=== PATIENT | female | born 1995 | race African-American/Black ===

== ENCOUNTER 2018-10-21 23:11 | Emergency (ER) | payer SELFPAY ==
--- NOTE | 2018-10-22 01:39 | ER Document Report ---
ED Cardiac - General Chief Complaint: Shortness Of Breath Stated Complaint: CHEST PAIN DOWN RIGHT ARM,TROUBLE BREATHING Time Seen by Provider: 10/22/18 01:19 Mode of Arrival: Ambulatory Information source: Patient, Parent TRAVEL OUTSIDE OF THE [place] IN LAST 30 DAYS: No - HPI Patient complains to provider of: Chest pain Was the onset of pain: Sudden Is the pain a: New problem Quality of pain: Mild, Achy Chest pain radiation location: Right arm Severity now: None Severity at worst: Mild Pain level currently: Denies Chest pain precipitating factors: At Rest Cardiac risk factors: None Positive cardiac history: No Associated symptoms: Shortness of breath Exacerbated by: Denies Relieved by: Nothing Similar symptoms previously: No Recently seen / treated by doctor: No - Related Data Allergies/Adverse Reactions: No Known Allergies Allergy (Unverified 10/22/18 03:21) Past Medical History - General Information source: Patient - Social History Smoking Status: Unknown if Ever Smoked Family History: Reviewed & Not Pertinent Review of Systems - Review of Systems Constitutional: No symptoms reported EENT: No symptoms reported Cardiovascular: Chest pain Respiratory: Short of breath Gastrointestinal: No symptoms reported Genitourinary: No symptoms reported Female Genitourinary: No symptoms reported Musculoskeletal: No symptoms reported Skin: No symptoms reported Hematologic/Lymphatic: No symptoms reported Neurological/Psychological: No symptoms reported -: Yes All other systems reviewed and negative Physical Exam - Vital signs Vitals: Temp Pulse Resp BP Pulse Ox 97.5 F 104 H 22 H 122/60 97 10/21/18 23:17 10/21/18 23:17 10/21/18 23:17 10/21/18 23:17 10/21/18 23:17 Interpretation: Normal - General General appearance: Appears well, Alert - HEENT Head: Normocephalic, Atraumatic Eyes: Normal Pupils: PERRL - Respiratory Respiratory status: No respiratory distress Chest status: Nontender Breath sounds: Normal Chest palpation: Normal - Cardiovascular Rhythm: Regular Heart sounds: Normal auscultation Murmur: No Notes: Right chest wall is tender to palpation. - Abdominal Inspection: Normal Distension: No distension Bowel sounds: Normal Tenderness: Nontender Organomegaly: No organomegaly - Back Back: Normal, Nontender - Extremities General upper extremity: Normal inspection, Nontender, Normal color, Normal ROM, Normal temperature General lower extremity: Normal inspection, Nontender, Normal color, Normal ROM, Normal temperature, Normal weight bearing. No: Alonzo's sign - Neurological Neuro grossly intact: Yes Cognition: Normal Orientation: AAOx4 [place]er Coma Scale Eye Opening: Spontaneous Robles Coma Scale Verbal: Oriented Robles Coma Scale Motor: Obeys Commands Robles Coma Scale Total: 15 Speech: Normal Motor strength normal: LUE, RUE, LLE, RLE Sensory: Normal - Psychological Associated symptoms: Normal affect, Normal mood - Skin Skin Temperature: Warm Skin Moisture: Dry Skin Color: Normal Course - Vital Signs Vital signs: Temp Pulse Resp BP Pulse Ox 97.5 F 104 H 19 110/67 100 10/21/18 23:17 10/21/18 23:17 10/22/18 03:01 10/22/18 03:01 10/22/18 03:39 - Laboratory Result Diagrams: 10/22/18 01:50 10/22/18 01:50 Laboratory results interpreted by me: 10/22/18 10/22/18 10/22/18 01:50 01:50 02:05 WBC 12.3 H RBC 5.80 H Hgb 11.9 L MCV 65 L MCH 20.6 L MCHC 31.4 L RDW 17.0 H Alkaline Phosphatase 136 H Urine Urobilinogen 2.0 H - Diagnostic Test Radiology reviewed: Reports reviewed - EKG Interpretation by Ne EKG shows normal: Sinus rhythm Rate: Tachycardia When compared to previous EKG there are: Previous EKG unavailable Additional EKG results interpreted by me: 10/22/18 02:32 Nonspecific T wave changes. No STEMI. Discharge - Discharge Clinical Impression: Atypical chest pain, Acute costochondritis Condition: Stable Disposition: HOME, SELF-CARE Instructions: Costochondritis ([facility]) Additional Instructions: Please follow-up with your doctor within the next 24 hours. Return to the emergency room if your condition worsens. Prescriptions: Ibuprofen [Ibu] 600 mg PO Q8H PRN #20 tablet PRN Reason:
[2018-10-22 02:15] LABS: ABSOLUTE BASOPHILS # (AUTO) 0.1 10^3/uL (0.0-0.2); ABSOLUTE EOSINOPHILS # (AUTO) 0.2 10^3/uL (0.0-0.6); ABSOLUTE LYMPHOCYTES (AUTO) 3.3 10^3/uL (0.5-4.7); ABSOLUTE MONOCYTES (AUTO) 0.8 10^3/uL (0.1-1.4); ABSOLUTE NEUT (AUTO) 7.8 10^3/uL (1.7-8.2); BASOPHILS % (AUTO) 0.6 % (0-2); EOSINOPHILS % (AUTO) 1.5 % (0-6); HEMATOCRIT 37.9 % (36.0-47.0); HEMOGLOBIN 11.9 g/dL (12.0-15.5); LYMPHOCYTES % (AUTO) 27.2 % (13-45); MEAN CORPUSCULAR HEMOGLOBIN 20.6 pg (27.0-33.4); MEAN CORPUSCULAR HGB CONC 31.4 g/dL (32.0-36.0); MEAN CORPUSCULAR VOLUME 65 fl (80-97); MONOCYTES % (AUTO) 6.6 % (3-13); PLATELET COUNT 327 10^3/uL (150-450); SEGMENTED NEUTROPHILS % (AUTO) 64.1 % (42-78); TOTAL CELLS COUNTED % (AUTO) 100 %; WHITE BLOOD COUNT 12.3 10^3/uL (4.0-10.5)
[2018-10-22 02:24] LABS: APPEARANCE,URINE SLIGHTLY-CLOUDY; BILIRUBIN,URINE NEGATIVE (NEGATIVE); COLOR,URINE YELLOW; GLUCOSE, URINE NEGATIVE (NEGATIVE); KETONES,URINE NEGATIVE (NEGATIVE); LEUKOCYTE ESTERASE,URINE NEGATIVE (NEGATIVE); NITRITE,URINE NEGATIVE (NEGATIVE); PROTEIN,URINE NEGATIVE (NEGATIVE); URINE SPECIFIC GRAVITY 1.021
[2018-10-22 02:35] LABS: ALANINE AMINOTRANSFERASE 33 U/L (9-52); ALBUMIN 4.6 g/dL (3.5-5.0); ALKALINE PHOSPHATASE 136 U/L (38-126); ANION GAP 11 (5-19); ASPARTATE AMINO TRANSFERASE 24 U/L (14-36); BILIRUBIN,DIRECT 0.3 mg/dL (0.0-0.4); BILIRUBIN,TOTAL 0.4 mg/dL (0.2-1.3); BLOOD UREA NITROGEN 12 mg/dL (7-20); CALCIUM 9.7 mg/dL (8.4-10.2); CARBON DIOXIDE 24 mmol/L (22-30); CHLORIDE 105 mmol/L (98-107); CREATINE KINASE 133 U/L (30-135); GLUCOSE 91 mg/dL (75-110); POTASSIUM 4.1 mmol/L (3.6-5.0); SODIUM 140.4 mmol/L (137-145)
[2018-10-22 02:46] LABS: NT PRO BNP 33 pg/mL (<125)
[2018-10-22 02:47] LABS: CREATINE KINASE MB < 0.22 ng/mL (<4.55); TROPONIN I < 0.012 ng/mL
--- NOTE | 2018-10-22 02:53 | RADIOLOGY REPORT (SQ) ---
EXAM DESCRIPTION: XR CHEST 1 VIEW COMPLETED DATE/TME: 10/22/2018 01:38 CLINICAL HISTORY: 23 years Female, Chest Pain COMPARISON: None. NUMBER OF VIEWS/TECHNIQUE: 1/AP FINDINGS: Adequate lung volume, clear parenchyma, normal cardiac silhouette, and intact bony thorax. IMPRESSION: No acute cardiopulmonary findings.
[2018-10-22] MEDS ORDERED: IBUPROFEN 600 MG TABLET PO ONE (03:28)
[2018-10-22 03:37] VITALS: BP 110/67
--- NOTE | 2018-10-22 13:54 | EKG REPORT ---
SEVERITY:- BORDERLINE ECG - SINUS TACHYCARDIA BORDERLINE T ABNORMALITIES, INFERIOR LEADS : Confirmed by: Mary Wakefield 22-Oct-2018 13:53:38
== END 2018-10-22 03:42 | disposition home or self-care (01) ==
LOC: ER 23:11
DX: M94.0 Chondrocostal junction syndrome [Tietze] (principal); R07.89 Other chest pain; R06.02 Shortness of breath
CPT/HCPCS: 36415; 71045; 80053; 81001; 82550; 82553; 83880; 84484; 84703; 85025; 85379; 93005; 93010; 99285

== ENCOUNTER 2019-01-25 10:34 | Emergency (ER) | payer SELFPAY ==
[2019-01-25] MEDS ORDERED: DIPHENHYDRAMINE HCL 50 MG/ML VIAL IV ONE (11:02)
[2019-01-25] MEDS ORDERED: FAMOTIDINE INJ/PF 20 MG/2 ML SDV IV ONE (11:02)
[2019-01-25] MEDS ORDERED: METHYLPREDNISOLONE INJ 125 MG/2 ML SDV IV ONE (11:02)
--- NOTE | 2019-01-25 11:06 | ER Document Report ---
HPI - HPI Patient complains to provider of: lip swelling Time Seen by Provider: 01/25/19 10:48 Onset: Yesterday Onset/Duration: Gradual Pain Level: 0 Context: Patient presents complaining of upper lip swelling that started last night. Patient denies any new foods medications or detergents. Patient denies any difficulty breathing or difficulty swallowing. Patient does complain of pruritus to the left side of the upper lip. Associated Symptoms: denies: Chest pain, Nonproductive cough, Productive cough, Drooling, Shortness of breath, Sore throat Exacerbated by: Denies Relieved by: Denies Similar symptoms previously: No Recently seen / treated by doctor: No - ROS ROS below otherwise negative: Yes Systems Reviewed and Negative: Yes All other systems reviewed and negative - CONSTITUTIONAL Constitutional: DENIES: Fever, Chills - EENT EENT: DENIES: Sore Throat - CARDIOVASCULAR Cardiovascular: DENIES: Chest pain - RESPIRATORY Respiratory: DENIES: Trouble Breathing, Coughing - GASTROINTESTINAL Gastrointestinal: DENIES: Nausea - REPRODUCTIVE Reproductive: DENIES: : - MUSCULOSKELETAL Musculoskeletal: DENIES: Extremity pain - DERM Skin Color: Normal Past Medical History - General Information source: Patient - Social History Smoking Status: Never Smoker Chew tobacco use (# tins/day): No Frequency of alcohol use: None Drug Abuse: None Occupation: none Lives with: Family Family History: Reviewed & Not Pertinent Patient has suicidal ideation: No Patient has homicidal ideation: No - Medical History Medical History: Other - Adrenal insufficiency Renal/ Medical History: Denies: Hx Peritoneal Dialysis Psychiatric Medical History: Reports: Hx Anxiety, Hx Depression Surgical Hx: Negative Vertical Provider Document - CONSTITUTIONAL Agree With Documented VS: Yes Exam Limitations: No Limitations General Appearance: WD/WN, No Apparent Distress - INFECTION CONTROL TRAVEL OUTSIDE OF THE [place] IN LAST 30 DAYS: No - HEENT HEENT: Atraumatic, Normocephalic Notes: Swelling to the middle third of the upper lip. No obvious injury or insect bite to the lip. No swelling noted to the posterior pharynx or tongue. - NECK Neck: Normal Inspection, Supple. negative: Lymphadenopathy-Left, Lymphadenopath y-Right - RESPIRATORY Respiratory: Breath Sounds Normal, No Respiratory Distress - CARDIOVASCULAR Cardiovascular: Regular Rate, Regular Rhythm - MUSCULOSKELETAL/EXTREMETIES Musculoskeletal/Extremeties: MAEW - NEURO Level of Consciousness: Awake, Alert, Appropriate Motor/Sensory: No Motor Deficit - DERM Integumentary: Warm, Dry, No Rash Course - Re-evaluation Re-evalutation: 01/25/19 11:[address] Lea regarding patient presentation. Recommends Solu-Medrol Benadryl and Pepcid and observing patient for a short time in the ER. Agrees with anticipated discharge plan of care. 01/25/19 13:10 Swelling has started to resolve. No swelling noted to tongue or posterior pharynx. Respirations unlabored. Good return precautions discussed with the patient and family. - Vital Signs Vital signs: Temp Pulse Resp BP Pulse Ox 98.6 F 94 17 130/82 H 99 01/25/19 10:39 01/25/19 10:39 01/25/19 10:39 01/25/19 10:39 01/25/19 10:39 Discharge - Discharge Clinical Impression: Swollen lip Condition: Stable Disposition: HOME, SELF-CARE Instructions: Use of Diphenhydramine, Steroid Medication Additional Instructions: Return immediately for any new or worsening symptoms Followup with your primary care provider, call tomorrow to make a followup appointment Take Benadryl every 6 hours [id number] as directed until symptoms have completely resolved. Prescriptions: Prednisone [Deltasone 20 mg Tablet] 3 tab PO DAILY 5 Days tablet Famotidine [Pepcid 20 mg Tablet] 20 mg PO BID #12 tablet Referrals: BOGDAN FRANCE MD [Primary Care Provider] - Follow up as needed
[2019-01-25 12:48] VITALS: BP 120/72
== END 2019-01-25 13:25 | disposition home or self-care (01) ==
LOC: ER 10:34
DX: R22.0 Localized swelling, mass and lump, head (principal)
CPT/HCPCS: J1200; J2930; S0028; 96374; 96375; 99283

== ENCOUNTER 2019-02-13 10:06 | Emergency (ER) | payer SELFPAY ==
[2019-02-13] MEDS ORDERED: DIPHENHYDRAMINE HCL 50 MG/ML VIAL IV ONE (10:32)
[2019-02-13] MEDS ORDERED: METHYLPREDNISOLONE INJ 125 MG/2 ML SDV IV ONE (10:33)
[2019-02-13] MEDS ORDERED: FAMOTIDINE INJ/PF 20 MG/2 ML SDV IV ONE (10:33)
[2019-02-13 13:12] VITALS: BP 136/79
--- NOTE | 2019-02-14 11:18 | ER Document Report ---
Entered by LUCY BANKS SCRIBE 02/13/19 1023 Acting as scribe for:SHANICE BECKER MD ED Allergic Reaction - General Chief Complaint: Allergic Reaction Stated Complaint: POSSIBLE ALLERGIC REACTION Time Seen by Provider: 02/13/19 10:21 Primary Care Provider: BOGDAN RFANCE MD [HONORARY] - Follow up as needed Mode of Arrival: Ambulatory Information source: Patient Notes: Patient is a 23-year-old female who presents to the emergency department today with complaints of upper lip swelling along with lower eyelid swelling bilaterally. Patient states that she had a similar allergic reaction on 01/25/2019 but she never figured out what it was. Patient also has complained of a cough. Patient states that itches sometimes. Patient states her upper lip feels numb. Patient denies any shortness of breath. TRAVEL OUTSIDE OF THE [place] IN LAST 30 DAYS: No - Related Data Allergies/Adverse Reactions: No Known Allergies Allergy (Verified 02/13/19 10:11) Past Medical History - General Information source: Patient - Social History Smoking Status: Never Smoker Cigarette use (# per day): No Frequency of alcohol use: None Drug Abuse: None Lives with: Family Family History: Reviewed & Not Pertinent Patient has suicidal ideation: No Patient has homicidal ideation: No Psychiatric Medical History: Reports: Hx Anxiety, Hx Depression Review of Systems - Review of Systems Constitutional: No symptoms reported EENT: See HPI, Other - upper lip swelling, lower eyelid swelling Cardiovascular: No symptoms reported Respiratory: No symptoms reported Gastrointestinal: No symptoms reported Genitourinary: No symptoms reported Female Genitourinary: No symptoms reported Musculoskeletal: No symptoms reported Skin: No symptoms reported Hematologic/Lymphatic: No symptoms reported Neurological/Psychological: No symptoms reported -: Yes All other systems reviewed and negative Physical Exam - Vital signs Vitals: Temp Pulse Resp BP Pulse Ox 98.5 F 105 H 16 139/84 H 97 02/13/19 10:11 02/13/19 10:11 02/13/19 10:11 02/13/19 10:11 02/13/19 10:11 - Notes Notes: Physical Exam: General: Alert, appears well. HEENT: Normocephalic. Atraumatic. PERRL. Extraocular movements intact. Oropharynx clear, airway is patent, no posterior oropharynx involvement. Upper lip swelling. There are no areas that are hard with palpation to suggest infection. Bilateral lower eyelids have mild edema. Neck: Supple. Non-tender. Respiratory: No respiratory distress. Clear and equal breath sounds bilaterally. Cardiovascular: Regular rate and rhythm. Abdominal: Normal Inspection. Non-tender. No distension. Normal Bowel Sounds. Back: No gross abnormalities. Extremities: Moves all four extremities. Upper extremities: Normal inspection. Normal ROM. Lower extremities: Normal inspection. No edema. Normal ROM. Neurological: Normal cognition. AAOx4. Normal speech. Psychological: Normal affect. Normal Mood. Skin: Warm. Dry. Normal color. Course - Re-evaluation Re-evalutation: 02/13/19 12:44 At this time the patient swelling has improved slightly. She also mentioned that she would like something for the cough that she has had for the last few days. - Vital Signs Vital signs: Temp Pulse Resp BP Pulse Ox 98.5 F 105 H 16 139/84 H 97 02/13/19 10:11 02/13/19 10:11 02/13/19 10:11 02/13/19 10:11 02/13/19 10:11 Discharge - Discharge Clinical Impression: Cough Allergic reaction Qualifiers: Encounter type: initial encounter Qualified Code(s): T78.40XA - Allergy, unspecified, initial encounter Condition: Stable Disposition: HOME, SELF-CARE Additional Instructions: Acute Allergic Reaction Your symptoms are due to an allergic reaction. Allergy can cause hives, swelling of the hands, feet, and face, hoarseness, and difficulty swallowing or breathing. It may be due to exposure to medication, animal dander, foods, infection, or insect bites. Medication is a common cause, even when prior use of this same medication caused no problems. Acute treatment may include adrenalin and antihistamines. Usually, the specific allergic agent can't be identified unless repeated episodes occur. Home treatment includes the following: (1) Stop any suspicious medications. This will be discussed with you. (2) Oral antihistamines for the next four to five days. Example, diphenhydramine (Benadryl) every four hours. (3) You may also use cimetidine (Tagamet), ranitidine (Zantac), or famotidine (Pepcid) every four hours if diphenhydramine is not controlling itching and hives. (4) Avoid aspirin until the hives completely disappear. (5) Avoid hot bahs or showers until the hives are completely gone. Call the doctor if faintness, difficulty swallowing, tightness in the chest, or wheezing occurs. Take the medications as prescribed for your allergic swelling, and for your cough control. Drink plenty of fluids and get plenty of rest. Try ice packs on the swollen areas off and on throughout the day. Follow-up with a local primary care provider if not improving. RETURN TO THE EMERGENCY ROOM IF ANY NEW OR WORSENING SYMPTOMS. Prescriptions: Prednisone [Deltasone 10 mg Tablet] 10 mg PO ASDIR PRN #21 tablet PRN Reason: Famotidine [Pepcid 20 mg Tablet] 20 mg PO Q6 #12 tablet Benzonatate [Tessalon Perles 100 mg Capsule] 100 mg PO ASDIR PRN #30 capsule PRN Reason: Referrals: BOGDAN FRANCE MD [HONORARY] - Follow up as needed Scribe Attestation: 02/13/19 10:34 I personally performed the services described in the documentation, reviewed and edited the documentation which was dictated to the scribe in my presence, and it accurately records my words and actions. I personally performed the services described in the documentation, reviewed and edited the documentation which was dictated to the scribe in my presence, and it accurately records my words and actions.
== END 2019-02-13 12:58 | disposition home or self-care (01) ==
LOC: ER 10:06
DX: T78.40XA Allergy, unspecified, initial encounter (principal); R05 Cough; R22.0 Localized swelling, mass and lump, head; H57.89 Other specified disorders of eye and adnexa
CPT/HCPCS: 99283; 96374; 96375; J1200; J2930; S0028

== ENCOUNTER 2019-03-12 16:39 | Emergency (ER) | payer SELFPAY ==
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
[2019-03-12 17:46] LABS: APPEARANCE,URINE CLEAR; BILIRUBIN,URINE NEGATIVE (NEGATIVE); COLOR,URINE YELLOW; GLUCOSE, URINE NEGATIVE (NEGATIVE); KETONES,URINE NEGATIVE (NEGATIVE); LEUKOCYTE ESTERASE,URINE NEGATIVE (NEGATIVE); NITRITE,URINE NEGATIVE (NEGATIVE); PROTEIN,URINE NEGATIVE (NEGATIVE); URINE SPECIFIC GRAVITY 1.021; UROBILINOGEN,URINE NEGATIVE mg/dL (<2.0)
[2019-03-12 17:57] LABS: URINE AMPHETAMINES SCREEN NEGATIVE; URINE BARBITURATES SCREEN NEGATIVE; URINE BENZODIAZEPINES SCREEN NEGATIVE; URINE COCAINE SCREEN NEGATIVE; URINE MARIJUANA (THC) SCREEN NEGATIVE; URINE METHADONE SCREEN NEGATIVE; URINE PHENCYCLIDINE SCREEN NEGATIVE
--- NOTE | 2019-03-12 18:09 | ER Document Report ---
ED General <SANDY JONES - Last Filed: 03/12/19 20:23> - General Mode of Arrival: Ambulatory Information source: Patient, Parent TRAVEL OUTSIDE OF THE [place] IN LAST 30 DAYS: No - HPI Onset: Yesterday Onset/Duration: Sudden Quality of pain: No pain Severity: None Pain Level: Denies Associated symptoms: None Exacerbated by: Denies Relieved by: Denies Similar symptoms previously: Yes Recently seen / treated by doctor: No - Related Data Home Medications: abilify. hydrocortisone. buspar <GUNNAR MCINTYRE - Last Filed: 03/12/19 21:17> - General Chief Complaint: Psych Problem Stated Complaint: PSYCH EVAL Time Seen by Provider: 03/12/19 16:49 Primary Care Provider: [facility] [Outside] - Follow up as needed [facility] [NO LOCAL MD] - Follow up as needed Notes: 23-year-old female with history of bipolar anxiety presents emergency department after she had an angry outburst yesterday. She reports she got mad at her friend Valerie and her boyfriend. She does not elaborate on why she got mad at him. Mom reports that she broke the TV and flipped some furniture and then grabbed a knife. Mom reports that her father on her had to wrestle the knife away from her. Patient reports that she was not going to hurt her self. Patient denies history of suicide ideations or homicidal ideations in front of mother. She did ask to speak with me alone. When mother and [id number] left she reported that she was having suicidal ideations. She reports she does not have a plan. She does report she thought of taking lots of pills but did not have a plan to. She reports she has never attempted suicide in the past. She denies visual or auditory hallucinations. Patient is calm at this time. Denies nausea vomiting fever diarrhea, denies pain with void. Reports she is not sexually active. Mom reports she has flipped furniture in the past but she has never grabbed a knife. Patient is unsure why she grabbed a knife (GUNNAR MCINTYRE) - Related Data Allergies/Adverse Reactions: No Known Allergies Allergy (Verified 03/12/19 16:45) Past Medical History - General Information source: Patient Last Menstrual Period: Unsure of last menses, just had Implanon removed - Social History Smoking Status: Never Smoker Chew tobacco use (# tins/day): No Frequency of alcohol use: None Drug Abuse: None Lives with: Family Family History: Reviewed & Not Pertinent Patient has suicidal ideation: No Patient has homicidal ideation: No Renal/ Medical History: Denies: Hx Peritoneal Dialysis Psychiatric Medical History: Reports: Hx Anxiety, Hx Bipolar Disorder, Hx Depression Surgical Hx: Negative <GUNNAR MCINTYRE - Last Filed: 03/12/19 21:17> Review of Systems <GUNNAR MCINTYRE - Last Filed: 03/12/19 21:17> - Review of Systems Notes: Review HPI for review of systems., All other systems negative (GUNNAR MCINTYRE) Physical Exam <GUNNAR MCINTYRE - Last Filed: 03/12/19 21:17> - Vital signs Vitals: Temp Pulse Resp BP Pulse Ox 98.1 F 97 18 141/77 H 100 03/12/19 16:43 03/12/19 16:43 03/12/19 16:43 03/12/19 16:43 03/12/19 16:43 - Notes Notes: PHYSICAL EXAMINATION: GENERAL: Well-appearing and in no acute distress HEAD: Atraumatic, normocephalic. EYES: extraocular movements intact, sclera anicteric, conjunctiva are normal. ENT: nares patent, . Moist mucous membranes. NECK: Normal range of motion, supple without lymphadenopathy LUNGS: CTAB and equal. No wheezes rales or rhonchi. HEART: Regular rate and rhythm without murmurs ABDOMEN: Soft, no tenderness. No guarding, no rebound EXTREMITIES: Normal range of motion, NEUROLOGICAL: Cranial nerves grossly intact. Normal sensory/motor exams. PSYCH: Normal mood, normal affect. calm SKIN: Warm, Dry, normal turgor, no rashes or lesions noted (GUNNAR MCINTYRE) Course - Laboratory Result Diagrams: 03/12/19 18:40 03/12/19 18:40 <SANDY JONES - Last Filed: 03/12/19 20:23> - Laboratory Result Diagrams: 03/12/19 18:40 03/12/19 18:40 - EKG Interpretation by Md EKG shows normal: Sinus rhythm Rate: Normal Rhythm: NSR <MCINTYRE,GUNNAR - Last Filed: 03/12/19 21:17> - Re-evaluation Re-evalutation: 03/12/19 18:08 Patient presents with her mother for violent outburst breaking the TV thrown furniture and grabbing a knife last night. Patient admits that she has had suicide ideations when mom leaves the room. Denies history of suicide attempt. Does not have a plan. No suicidal ideations at this time. Patient and family were instructed on plan of care to include labs observation overnight in discussion with mental health in the morning. They verbalized understanding to plan and agree. 03/12/19 20:17 Behavioral health provider reports that she talked with patient. She advised her on medications to help her with mood swings. Patient declines all medications. Patient reports she is not suicidal. Her anger outburst was yesterday evening. She has not been upset since that time. Patient is 23 years old. No indications for 24-hour hold her IVC. Labs unremarkable 03/12/19 Patient's [id number] came to pick her up. I instructed patient to return anytime she needs any kind of help. Patient reports she will not be back again 03/12/19 18:40 03/12/19 18:40 MCV 67 fl (80-97) L 03/12/19 18:40 MCH 21.3 pg (27.0-33.4) L 03/12/19 18:40 MCHC 31.8 g/dL (32.0-36.0) L 03/12/19 18:40 RDW 17.6 % (11.5-14.0) H 03/12/19 18:40 Seg Neutrophils % 67.6 % (42-78) 03/12/19 18:40 Chloride 103 mmol/L (98-107) 03/12/19 18:40 Carbon Dioxide 25 mmol/L (22-30) 03/12/19 18:40 Anion Gap 11 (5-19) 03/12/19 18:40 Est GFR ( Amer) > 60 (>60) 03/12/19 18:40 Glucose 99 mg/dL (75-110) 03/12/19 18:40 Calcium 9.8 mg/dL (8.4-10.2) 03/12/19 18:40 Total Bilirubin 0.2 mg/dL (0.2-1.3) 03/12/19 18:40 AST 26 U/L (14-36) 03/12/19 18:40 Alkaline Phosphatase 113 U/L (38-126) 03/12/19 18:40 Total Protein 7.7 g/dL (6.3-8.2) 03/12/19 18:40 Albumin 4.4 g/dL (3.5-5.0) 03/12/19 18:40 Serum HCG, Qual NEGATIVE (NEGATIVE) 03/12/19 18:40 Urine Color YELLOW 03/12/19 17:10 Urine Appearance CLEAR 03/12/19 17:10 Urine pH 5.0 (5.0-9.0) 03/12/19 17:10 Ur Specific Cabins 1.021 03/12/19 17:10 Urine Protein NEGATIVE mg/dL (NEGATIVE) 03/12/19 17:10 Urine Glucose (UA) NEGATIVE mg/dL (NEGATIVE) 03/12/19 17:10 Urine Ketones NEGATIVE mg/dL (NEGATIVE) 03/12/19 17:10 Urine Blood NEGATIVE (NEGATIVE) 03/12/19 17:10 Urine Nitrite NEGATIVE (NEGATIVE) 03/12/19 17:10 Ur Leukocyte Esterase NEGATIVE (NEGATIVE) 03/12/19 17:10 Urine WBC (Auto) 2 /HPF 03/12/19 17:10 Urine RBC (Auto) 4 /HPF 03/12/19 17:10 (GUNNAR MCINTYRE) - Vital Signs Vital signs: Temp Pulse Resp BP Pulse Ox 98.3 F 98 16 136/86 H 97 03/12/19 20:27 03/12/19 20:27 03/12/19 20:27 03/12/19 20:27 03/12/19 20:27 - Laboratory Laboratory results interpreted by me: 03/12/19 03/12/19 18:40 18:40 RBC 5.75 H MCV 67 L MCH 21.3 L MCHC 31.8 L RDW 17.6 H Salicylates < 1.0 L Acetaminophen < 10 L - EKG Interpretation by Me Additional EKG results interpreted by me: 03/12/19 21:[address] elevation no T wave inversion (GUNNAR MCINTYRE) Discharge <SANDY JONES - Last Filed: 03/12/19 20:23> <GUNNAR MCINTYRE - Last Filed: 03/12/19 21:17> - Discharge Clinical Impression: Outbursts of anger Condition: Stable Disposition: HOME, SELF-CARE Additional Instructions: You have been evaluated by both medical and behavioral health teams and have been deemed appropriate for discharge. Medication recommendations were provided, but you declined the recommendations. Please follow up with your medication management provider with any concerns. You are being provided with a community mental health resource list. You are encouraged to follow up with an outpatient mental health provider. You are being provided with the contact information for mobile crisis, as needed. Bipolar Disorder Bipolar disorder is also called manic-depressive disorder. Depression alternates with brain hyperactivity called rosa. Each phase lasts from several days to a few weeks. We don't know exactly what causes bipolar disorder, but it's treatable. During the "manic phase," you may feel elated and energetic. You may have racing thoughts, rapid speech, increased activity, and grandiose ideas. During this time, you may not realize how poor your judgement is. Inappropriate spending, drug abuse, excessive alcohol use, marriage problems, and irresponsib le sexual behavior are common during the manic phase. During the "depressive phase," you might feel depressed, guilty, worthless, fatigued, and unable to concentrate. You might have thoughts of suicide. Good treatments are available for bipolar disorder. [place] is a classic drug for bipolar disorder, and is still often useful. If the manic phase is very mild, an antidepressant alone can be prescribed. If the manic phase is very severe, an antipsychotic medicine (such as Haldol) may be needed. The treatment must be matched to your symptoms, so it's important to work closely with your psychiatric care provider. Contact your physician, the hospital emergency center, crisis line, or your counsellor if you are losing control or having self-destructive thoughts. AT ANY TIME, IF YOUR SYMPTOMS CHANGE SIGNIFICANTLY OR WORSEN OR YOU DEVELOP NEW SYMPTOMS, RETURN TO THE EMERGENCY DEPARTMENT IMMEDIATELY FOR RE-EVALUATION. From the medical provider: *You have been evaluated for anger issues *Follow up with your mental health provider within Thursday *Take your medication as prescribed *Return to the emergency department for worsening symptoms, suicidal ideations, homicidal ideations, concerns *Return to ED for worsening condition, changes, needs Referrals: [facility] [NO LOCAL MD] - Follow up as needed [facility] [Outside] - Follow up as needed
[2019-03-12 18:58] LABS: ABSOLUTE BASOPHILS # (AUTO) 0.1 10^3/uL (0.0-0.2); ABSOLUTE EOSINOPHILS # (AUTO) 0.1 10^3/uL (0.0-0.6); ABSOLUTE MONOCYTES (AUTO) 0.6 10^3/uL (0.1-1.4); ABSOLUTE NEUT (AUTO) 5.9 10^3/uL (1.7-8.2); EOSINOPHILS % (AUTO) 1.6 % (0-6); HEMATOCRIT 38.5 % (36.0-47.0); HEMOGLOBIN 12.2 g/dL (12.0-15.5); LYMPHOCYTES % (AUTO) 22.7 % (13-45); MEAN CORPUSCULAR HEMOGLOBIN 21.3 pg (27.0-33.4); MEAN CORPUSCULAR HGB CONC 31.8 g/dL (32.0-36.0); MEAN CORPUSCULAR VOLUME 67 fl (80-97); MONOCYTES % (AUTO) 7.1 % (3-13); PLATELET COUNT 282 10^3/uL (150-450); RED BLOOD COUNT 5.75 10^6/uL (3.72-5.28); RED CELL DISTRIBUTION WIDTH 17.6 % (11.5-14.0); SEGMENTED NEUTROPHILS % (AUTO) 67.6 % (42-78); TOTAL CELLS COUNTED % (AUTO) 100 %; WHITE BLOOD COUNT 8.8 10^3/uL (4.0-10.5)
--- NOTE | 2019-03-12 19:07 | PSYCHOLOGICAL NOTE ---
Psych Note - Psych Note Date seen by psych provider: 03/12/19 Time seen by psych provider: 18:30 Psych Note: Reason for consult: violent outburst Patient is a 23 year old female who presents to ED via POV. Patient had violent outburst (i.e. breaking the TV thrown furniture and grabbing a knife) last night. Patient states she had an episode last night. Patient states she has frequent violent outbursts in which she breaks things. Patient stated she grabbed the knife to scare them. Patient denies desire, plan, or intent to hurt anyone. Patient denies homicidal ideation. Patient endorses passive suicidal ideation. Patient denied plan, intent, and means with clinician. Patient denied a desire to . Patient states the event happened last night, however no issues since last night- approximately 24 hours with no behavioral concerns. Patient is calm and appropriately engaged with clinician. Clinician went to check in on patient after initial evaluation, and she was eating crackers and pudding. Clinician notes no behavioral concerns while at ED. Clinician observed possible IDD concerns. Clinician attempted to contact mother for collateral information. Patient states she "sees someone for medicines" but not for mental health services. Patient states she "watches tv" most of the day. Clinician informed patient of medication recommendations. Patient inquired as to what new medications are being recommended. Clinician provided information regarding the medications and how they are helpful to stabilize mood. Patient declined medication recommendations. Clinician remarked that patient is here for treatment and asked what she wanted since she is refusing treatment. Patient replied, "my mom brought me here." Patient requested for her mother to be contacted to pick her up. Patient is alert and oriented to person, place, time and circumstance. Mood is normal with congruent affect as evidenced by smiling, laughing, and engaging with clinician. Patient endorses passive suicidal ideation. Patient denies homicidal ideations. Delusions are absent and behavior is congruent with an intact reality based presentation (i.e.: organized and linear through processes). There is no observed behavior that suggests patient is responding to internal stimuli. Patient denies current auditory and visual hallucinations. Eye contact is appropriate. Conversational speech is within normal rate, tone, and prosody. Intellectual ability appears to be somewhat within average range. Attention and concentration are fair. Insight, judgment and impulse control are currently poor. DSM Diagnosis: Per report, Bipolar Possible IDD Medication recommendations per [facility] contracted psychiatrist Dr. Kali ROBERTS is as follows: Discontinue Abilify Add Zyprexa 5MG in the morning, and then 2.5MG at bedtime Add Cogentin 1MG, daily Impression/Plan: Patient is cleared from acute psychiatric services. Patient does not meet IVC criteria per [place] GS 122C. Patient denies suicidal and homicidal ideations to clinician and attending physician. Delusions are absent and behavior is congruent with an intact reality based presentation. There is no observed behavior that suggests patient is responding to internal stimuli. Patient refuses medication recommendation (i.e. treatment in an acute setting). Patient's family has been contacted by nursing staff for flower buncher or picker. It is recommended that patient seek outpatient mental health services. Dr. Avendano was consulted on the care and management of this patient; attending physician is in agreement with recommendations and disposition.
[2019-03-12 19:17] LABS: ALBUMIN 4.4 g/dL (3.5-5.0); ALKALINE PHOSPHATASE 113 U/L (38-126); ANION GAP 11 (5-19); ASPARTATE AMINO TRANSFERASE 26 U/L (14-36); BILIRUBIN,DIRECT 0.1 mg/dL (0.0-0.4); BILIRUBIN,TOTAL 0.2 mg/dL (0.2-1.3); BLOOD UREA NITROGEN 9 mg/dL (7-20); CALCIUM 9.8 mg/dL (8.4-10.2); CARBON DIOXIDE 25 mmol/L (22-30); CHLORIDE 103 mmol/L (98-107); GLUCOSE 99 mg/dL (75-110); POTASSIUM 4.1 mmol/L (3.6-5.0); TOTAL PROTEIN 7.7 g/dL (6.3-8.2)
[2019-03-12 19:18] LABS: ACETAMINOPHEN < 10 ug/mL (10-30); ALCOHOL < 10 mg/dL (NONE DETECTED); SALICYLATE < 1.0 mg/dL (2.0-20.0)
[2019-03-12 20:45] VITALS: BP 136/86
--- NOTE | 2019-03-13 17:03 | EKG REPORT ---
SEVERITY:- NORMAL ECG - SINUS RHYTHM : Confirmed by: Samuel Stubbs MD 13-Mar-2019 17:02:26
== END 2019-03-12 20:45 | disposition home or self-care (01) ==
LOC: ER 16:39
DX: R45.4 Irritability and anger (principal); F29 Unspecified psychosis not due to a substance or known physiological condition; R45.851 Suicidal ideations
CPT/HCPCS: 36415; 80053; 80307; 81001; 84703; 85025; 93005; 93010; 99285

== ENCOUNTER 2019-06-26 16:41 | Emergency (ER) | payer SELFPAY ==
[2019-06-26] MEDS ORDERED: DEXAMETHASONE SOD PHOS INJ 10 MG/1 ML VIAL IM ONE (16:51)
[2019-06-26] MEDS ORDERED: PENICILLIN G BENZATHINE 1.2 MILLION UNIT/2 ML DISP.SYRIN IM ONE (16:51)
--- NOTE | 2019-06-26 16:56 | ER Document Report ---
HPI - HPI Patient complains to provider of: Sore throat, runny nose, ear pain Time Seen by Provider: 06/26/19 16:45 Onset: Last week Pain Level: 3 Context: 24-year-old female presents emergency department with complaints of sore throat ear pain runny nose for the past week. Denies fever vomiting diarrhea. Reports decreased appetite. Reports it hurts to swallow but she is swallowing without problems. No known strep exposure. Associated Symptoms: Earache, Sore throat Exacerbated by: Denies Relieved by: Denies Similar symptoms previously: No Recently seen / treated by doctor: No - EENT EENT: REPORTS: Sore Throat - REPRODUCTIVE Reproductive: DENIES: : Past Medical History - General Information source: Patient Last Menstrual Period: May - Social History Smoking Status: Never Smoker Chew tobacco use (# tins/day): No Frequency of alcohol use: None Drug Abuse: None Occupation: None Lives with: Family Family History: Reviewed & Not Pertinent Patient has suicidal ideation: No Patient has homicidal ideation: No Renal/ Medical History: Denies: Hx Peritoneal Dialysis Psychiatric Medical History: Reports: Hx Anxiety, Hx Bipolar Disorder, Hx Depression Surgical Hx: Negative Vertical Provider Document - CONSTITUTIONAL Agree With Documented VS: Yes Exam Limitations: No Limitations General Appearance: WD/WN, No Apparent Distress - INFECTION CONTROL TRAVEL OUTSIDE OF THE [place] IN LAST 30 DAYS: No - HEENT HEENT: Atraumatic, Normocephalic, Pharyngeal Exudate, Pharyngeal Erythema - Tonsillar hypertrophy, tonsillar exudate, good airway clear voice opens mouth wide no trismus no peritonsillar abscess.. negative: Conjuctival Injection, Tympanic Membrane Red, Tympanic Membrane Bulging - NECK Neck: Normal Inspection, Supple. negative: Lymphadenopathy-Left, Lymphadenopathy-Right - RESPIRATORY Respiratory: Breath Sounds Normal, No Respiratory Distress - CARDIOVASCULAR Cardiovascular: Regular Rhythm, Tachycardia - GI/ABDOMEN Gastrointestinal: Abdomen Soft - MUSCULOSKELETAL/EXTREMETIES Musculoskeletal/Extremeties: CRISTAL ENRIQUE - NEURO Level of Consciousness: Awake, Alert, Appropriate Motor/Sensory: No Motor Deficit - DERM Integumentary: Warm, Dry, No Rash Course - Re-evaluation Re-evalutation: 06/26/19 19:05 Laboratory 06/26/19 16:55 Group A Strep Rapid NEGATIVE Strep test negative. Patient has tonsillar exudate. Has been treated with steroid and pending the saline. She was instructed on this. Instructed to push fluids return for concerns follow-up with her primary care provider within 1 week. Patient and her mother verbalized understanding to all instructions. Respiratory rate even unlabored. No cough noted. Mother was concerned about a cough. She was instructed to take Mucinex DM monitor her cough and temperature return for concerns but definitely follow-up with primary care provider within 1 week. She verbalized understanding. Discharge - Discharge Clinical Impression: Sore throat, Tonsillar exudate Condition: Stable Disposition: HOME, SELF-CARE Instructions: Penicillins ([facility]), Sore Throat ([facility]), Steroid Medication Injection Additional Instructions: *You have been evaluated for a sore throat, tonsillar exudate *You have been treated with steroid injection and penicillin injection. *Gargle with warm salt water and suck on throat lozenges for comfort *Change your toothbrush *Do not let anyone drink/eat after you *Good hand washing *Follow-up with a primary care provider within 1 week for recheck *Return to ED for worsening condition change, needs, unable to swallow, concerns Monitor your blood pressure. Your blood pressure was elevated today. This may be because you were anxious, in pain or because you need medication. It is important to follow up with your primary care provider for full evaluation. Forms: Elevated Blood Pressure
[2019-06-26 18:03] VITALS: BP 123/75
== END 2019-06-26 18:14 | disposition home or self-care (01) ==
LOC: ER 16:41
DX: J02.9 Acute pharyngitis, unspecified (principal); R09.89 Other specified symptoms and signs involving the circulatory and respiratory systems; J35.1 Hypertrophy of tonsils; H92.09 Otalgia, unspecified ear; R63.0 Anorexia
CPT/HCPCS: 99283; 96372; 87070; 87880; J0561; J1100